=== PATIENT | male | born 1950 | race Caucasian/White ===

== ENCOUNTER → 2018-11-13 | Outpatient (CLI) | payer MEDICARE, OTHER | LOC: YCFC.O 10:44 | PROVIDERS: ATTEND Family Medicine | DX: Z00.00 Encounter for general adult medical examination without abnormal findings (principal); R27.0 Ataxia, unspecified; R35.1 Nocturia; R53.83 Other fatigue; Z13.220 Encounter for screening for lipoid disorders ==

== ENCOUNTER → 2018-11-14 | Outpatient (CLI) | payer MEDICARE, OTHER ==
--- NOTE | 2018-11-14 14:37 | MRI ---
EXAM DESCRIPTION: Brain w/wo Contrast: Magnetic Resonance Imaging. CLINICAL HISTORY: 68 years Male [place] UNSPECIFIED COMPARISON: None. TECHNIQUE: Multiplanar, high-field MRI, multiple conventional sequences, without and with gadolinium IV contrast. No adverse reactions. Multiple axial diffusion sequences. FINDINGS: Small focus of hyperintense FLAIR and T2-weighted signal in the right posterior frontal guerra radiata above the right basal ganglia. Also similar signal in the right frontal centrum semiovale.. No hemorrhage, no cerebral edema, no mass-effect. Normal contrast enhancement. Similar hyperintense signal in the lateral left basal ganglia. Normal signal in the right basal ganglia. No hemorrhage, no cerebral edema, no mass-effect. Normal contrast enhancement. Normal signal in the brainstem and cerebellar hemispheres, but questionable atrophy in the midline structures, and paracentral cerebellar folia. No hemorrhage, no cerebral edema, no mass-effect. Normal contrast enhancement. Concordance of the diffusion and non-diffusion sequences with no evidence of acute or subacute infarction. Cortical sulci, ventricles, and other CSF spaces, and the subdural spaces are unremarkable, but the fourth ventricle is slightly prominent for patient's age. The aqueduct of Sylvius appears patent. No effacement or displacement. No midline shift. No extra-axial hemorrhage. Normal contrast enhancement. Normal flow signal void in the major vessels of the [place], and the venous sinuses. IACs are symmetric bilaterally. Normal signal in the bilateral mastoid air cells. No mass effect in the bilateral Cerebellopontine angles. Normal contrast enhancement. Pituitary gland occupies most of the sella. Normal contrast enhancement. Base of the cerebellar tonsils is above the foramen magnum. Normal signal in the bilateral paranasal sinuses. The bony calvarium is intact. IMPRESSION: 1. Small foci of abnormal white matter signal as described without contrast enhancement, mass effect, hemorrhage, or diffusion restriction. Most likely focal cerebral microvascular disease or age-related process. 2. Suggestion of atrophy of the midline cerebellar structures and superior medial cerebellar folia bilaterally with no abnormal signal, hemorrhage, diffusion restriction, or abnormal contrast enhancement. Slight prominence of the fourth ventricle. This may be related to ataxia symptoms. Correlate with clinical findings. 3. Normal noncontrast MRI diffusion study with no evidence of acute or subacute significant ischemia or infarction. Electronically signed by: Victor Hugo Merchant MD 11/14/2018 2:35 PM CDT
== END ==
LOC: MRI 08:12
PROVIDERS: ATTEND Family Medicine
DX: Z00.00 Encounter for general adult medical examination without abnormal findings (principal); R27.0 Ataxia, unspecified

== ENCOUNTER → 2019-01-15 | Outpatient (CLI) | payer MEDICARE, OTHER | LOC: YCFC.O 10:27 | PROVIDERS: ATTEND Family Medicine | DX: F10.10 Alcohol abuse, uncomplicated (principal); D51.0 Vitamin B12 deficiency anemia due to intrinsic factor deficiency; E53.9 Vitamin B deficiency, unspecified ==

== ENCOUNTER 2019-01-30 05:45 | Day surgery (SDC) | payer MEDICARE, OTHER ==
[2019-01-30] MEDS ORDERED: LACTATED RINGERS 1,000 ML ONE (06:10)
[2019-01-30] MEDS: LACTATED RINGERS 1,000 ML IVS ONE (07:14)
[2019-01-30 08:10] VITALS: O2SAT 99
[2019-01-30 08:51] VITALS: BP 162/90; TEMP 97.2
--- NOTE | 2019-01-30 09:12 | OP ---
DATE OF PROCEDURE: 01/30/19 PREOPERATIVE DIAGNOSIS: 1. Dysphagia. POSTOPERATIVE DIAGNOSIS: 1. Esophageal stricture. 2. Hiatal hernia. PROCEDURE: 1. Esophagogastroduodenoscopy with dilation. SURGEON: Mauro Hamlin MD ANESTHESIA: Monitored anesthesia care. ESTIMATED BLOOD LOSS: Less than 5 mL. COMPLICATIONS: None. PROCEDURE: The patient was placed in the left lateral decubitus position. A time-out was performed. After deep sedation was achieved, the Olympus standard upper endoscope was inserted through the oropharynx and into the proximal esophagus and advanced to the second portion of the duodenum under direct visualization. The endoscope was then progressively withdrawn and the total duodenum, stomach and esophagus lumen were evaluated. Retroflexion was performed in the stomach. A Savary guidewire was loaded through the endoscope into the gastric antrum. The endoscope was then removed over the guidewire, leaving the Savary guidewire in place. Esophageal dilation of the distal esophagus was performed with the 12.8 mm Savary dilator. The scope was then re- inserted. Moderate improvement in esophageal narrowing with a mucosal tear was seen. The endoscope was then withdrawn. The procedure was then terminated. The patient tolerated the procedure well with no immediate complications. FINDINGS: 1. A moderate stricture was seen in the distal esophagus. This stricture was located at 36 cm from the incisors. The endoscope traversed the stricture with mild resistance. Multiple biopsies were taken for histology. Esophageal dilation to 12.8 mm was performed as above. 2. Stomach: A medium sized hiatal hernia was noted. The stomach was otherwise unremarkable. 3. Duodenum: The duodenum was unremarkable. IMPRESSION: 1. Esophageal stricture, dilated, biopsied. 2. Medium sized hiatal hernia. RECOMMENDATIONS: 1. Okay to discharge home once the patient meets discharge criteria. 2. Resume prior diet. 3. Resume prior medications. 4. Proton pump inhibitor once daily. 5. Repeat EGD in 4 to 6 weeks for esophageal dilation, we will do screening colonoscopy at that time. #[id number] [facility]
[2019-01-30] MEDS ORDERED: PROPOFOL 200 MG/20 ML VIAL IV ONE (10:00)
[2019-01-30] MEDS ORDERED: LIDOCAINE 1% 10 ML VIAL INJ ONE (10:00)
== END 2019-01-30 08:40 | disposition home or self-care (01) ==
LOC: AMB 05:45
PROVIDERS: ATTEND Internal Medicine Gastroenterology
DX: K20.9 Esophagitis, unspecified (principal); K22.2 Esophageal obstruction; K44.9 Diaphragmatic hernia without obstruction or gangrene
CPT/HCPCS: 00731; 43249; 88305; J3490; J7120

== ENCOUNTER 2019-02-27 05:38 | Day surgery (SDC) | payer MEDICARE, OTHER ==
[2019-02-27] MEDS ORDERED: LACTATED RINGERS 1,000 ML ONE (06:11)
[2019-02-27] MEDS ORDERED: LIDOCAINE 1% 10 ML VIAL INJ ONE (07:00)
[2019-02-27] MEDS ORDERED: PROPOFOL 200 MG/20 ML VIAL IV ONE (07:00)
[2019-02-27 08:35] VITALS: BP 161/81; TEMP 98.2; O2SAT 100
--- NOTE | 2019-02-27 08:59 | OP ---
DATE OF PROCEDURE: 02/27/19 PREOPERATIVE DIAGNOSIS: 1. Dysphagia. 2. Esophageal stricture. 3. Colorectal cancer screening. POSTOPERATIVE DIAGNOSIS: 1. Esophageal stricture. 2. Large hiatal hernia. 3. Colonic polyps. 4. Diverticulosis. 5. Internal hemorrhoids. PROCEDURE: 1. EGD with dilation. 2. Colonoscopy with polypectomy. SURGEON: Mauro Hamlin MD ANESTHESIA: Monitored anesthesia care. ESTIMATED BLOOD LOSS: Less than 5 mL. COMPLICATIONS: None. PROCEDURE: The patient was placed in the left lateral decubitus position. A time-out was performed. After deep sedation was achieved, the Olympus adult upper endoscope was inserted through the oropharynx and into the proximal esophagus and advanced to the second portion of the duodenum under direct visualization. The endoscope was then progressively withdrawn and the duodenum, stomach and esophageal lumens were evaluated. Retroflexion was performed in the stomach. A Savary guidewire was advanced into the antrum, the endoscope was then progressively withdrawn leaving the guidewire in place. The Savary esophageal dilation was performed of the distal esophagus with the 12.8, 14 and 15-mm dilators. The dilators were passed easily with mild resistance, a small amount of heme was noted on the 15-mm dilator. The guidewire was then withdrawn, the upper endoscope was then re-inserted into the distal esophagus, and expected mucosal tear was noted with moderate improvement in luminal narrowing. The endoscope was then withdrawn and we proceeded with colonoscopy. The patient's stretcher was rotated 180 degrees. A digital rectal exam was performed and was noted to be unremarkable. The Olympus adult colonoscope was then inserted through anus, into the rectum and advanced to the cecum under direct visualization. The cecum was identified by the ileocecal valve, terminal ileum and the appendiceal orifice. Photodocumentation of these locations was performed. The patients bowel preparation was good. The endoscope was then progressively withdrawn and the total colonic lumen evaluated. Retroflexion was performed in the rectum. The endoscope was then withdrawn and the procedure terminated. The patient tolerated the procedure well with no immediate complications. EGD FINDINGS: 1. Esophagus: A moderate, benign-appearing esophageal stricture was noted in the distal esophagus at 36 cm from the incisors, noted to be slightly improved since the last examination. Savary dilation was performed up to 15 mm as above. 2. Large hiatal hernia was noted. 3. The stomach was otherwise unremarkable. 4. The first and second portions of the duodenum were unremarkable. COLONOSCOPY FINDINGS: 1. Sessile 4 mm polyp was found in the cecum. This polyp was removed with a cold snare and retrieved for pathology. 2. One 15 mm sessile polyp was found in the proximal ascending colon. This polyp was removed en bloc with a hot snare and retrieved for pathology. 3. A 5 mm transverse colon polyp was noted. This polyp was removed with a cold snare and retrieved for pathology. 4. One 5 mm sessile polyp was found in the sigmoid colon. This polyp was removed with a cold snare and retrieved for pathology. 5. Descending and sigmoid colonic diverticulosis was noted, with several small diverticular openings. There was no evidence of diverticulitis or bleeding. 6. Grade 2 non-bleeding internal hemorrhoids were seen upon retroflexion in the rectum. IMPRESSION: 1. Benign esophageal stricture, dilated to 15 mm as above. 2. Large hiatal hernia. 3. Colonic polyps, removed as above. 4. Colonic diverticulosis. 5. Grade 2 non-bleeding internal hemorrhoids. RECOMMENDATIONS: 1. Okay to discharge home once the patient meets discharge criteria. 2. Resume prior diet. 3. Resume home medications. 4. Repeat colonoscopy in 3-5 years depending upon pathology results. 5. Followup in the GI clinic with Dr. Hamlin in 1 to 2 months. #[id number] [facility]
== END 2019-02-27 09:00 | disposition home or self-care (01) ==
LOC: AMB 05:38
PROVIDERS: ATTEND Internal Medicine Gastroenterology
DX: Z12.11 Encounter for screening for malignant neoplasm of colon (principal); D12.2 Benign neoplasm of ascending colon; D12.0 Benign neoplasm of cecum; D12.3 Benign neoplasm of transverse colon; K63.5 Polyp of colon; K57.30 Diverticulosis of large intestine without perforation or abscess without bleeding; K64.1 Second degree hemorrhoids; K22.2 Esophageal obstruction; K44.9 Diaphragmatic hernia without obstruction or gangrene
CPT/HCPCS: 00813; 43248; 45385; 88305; J3490; J7120

== ENCOUNTER → 2019-03-01 | Outpatient (CLI) | payer MEDICARE, OTHER | LOC: LAB.O 09:15 | PROVIDERS: ATTEND Family Medicine | DX: R74.8 Abnormal levels of other serum enzymes (principal); N39.0 Urinary tract infection, site not specified ==